=== PATIENT | male | born 1980 | race Caucasian/White ===

== ENCOUNTER 2020-10-19 12:45 | Outpatient (CLI) | payer OTHER, SELFPAY ==
--- NOTE | 2020-10-19 12:59 | MR_ITS ---
WS: [id number] MRI HEAD WITH CONTRAST WITH ATTENTION TO THE INTERNAL AUDITORY CANALS TECHNIQUE: Sagittal T1, T2 axial, T2 axial flair, axial susceptibility weighted imaging, axial diffus ion weighted images, and coronal T2 images were obtained. Pre and post T1 axial and post T1 coronal i mages. ADC and FSPGR images. Post gadolinium images with attention to the internal auditory canals. A xial fiesta imaging. CLINICAL INFORMATION: DIZZINESS AND GIDDINESS COMPARISON: None. FINDINGS: No evidence of restricted diffusion to suggest acute ischemia. Ventricular system and basal cisterns are patent. Normal clay-white differentiation. No suspicious intracranial signal abnormalities. Ericka l posterior fossa. Normal vascular flow voids at the skull base. No extra-axial fluid collections. Pa ranasal sinuses and mastoid air cells are well aerated. No hemosiderin on susceptibly weighted images . Proximal 7th and 8th cranial nerves are normal in appearance. Normal trigeminal nerve root entry zone s. No evidence of enhancing IAC or CP angle mass. Normal optic chiasm and pituitary infundibulum. Nor mal cavernous sinuses and Meckel's cave. Incidental venous angioma in the right frontal lobe. Otherwi se no abnormal intracranial enhancement. Incidental dural venous sinuses. MR/MR iac's wo/w con* [id number] IMPRESSION: 1. No evidence of restricted diffusion to suggest acute ischemia. 2. Proximal 7th and 8th cranial nerves are normal in appearance. No evidence o f enhancing IAC or CP angle mass. 3. No suspicious intracranial signal abnormalities. 4. Paranasal sinuses and mastoid air cells are well aerated. 5. No hemosiderin on the susceptibility weighted images. 6. Incidental benign venous angioma in the right frontal lobe.
== END 2020-10-19 12:46 | disposition home or self-care (01) ==
PROVIDERS: PCP Family Medicine; Visit Provider Otolaryngology
DX: R42 Dizziness and giddiness (principal); Q28.3 Other malformations of cerebral vessels
CPT/HCPCS: 70553; A9579

== ENCOUNTER 2022-04-29 12:48 | Outpatient (CLI) | payer OTHER, SELFPAY ==
--- NOTE | 2022-04-29 13:06 | USCV_ITS ---
Maxx Stanford Age: 42 Gender: M : 1980 Exam Date: 04/29/2022 13:20 Ordering Phys: Lottie Sanders Technologist: FARHAT Exam Location: [facility] Indication: SENSATION OF CHEST PRESSURE, DIZZINESS BP: 122 / 82 HR: 77 Rhythm: Sinus Technical Quality: Adequate MEASUREMENTS (Male / Female) Normal Values 2D ECHO LV Diastolic Diameter PLAX 4.4 cm 4.2 - 5.9 / 3.9 - 5.3 cm LV Systolic Diameter PLAX 2.7 cm IVS Diastolic Thickness 0.9 cm 0.6 - 1.0 / 0.6 - 0.9 cm IVS Systolic Thickness 1.5 cm LVPW Diastolic Thickness 0.9 cm 0.6 - 1.0 / 0.6 - 0.9 cm LVPW Systolic Thickness 1.6 cm LVOT Diameter 2.0 cm LV Ejection Fraction 2D Teich 67.8 % LV Ejection Fraction MOD 2C 60.7 % LV Ejection Fraction 2C AL 62.9 % LA Diameter 2.9 cm LA Width 3.1 cm LA Height 4.9 cm RA Width 3.2 cm RA Height 4.3 cm Aorta at Sinotubular Diameter 2.7 cm IVC Diameter 1.6 cm M-MODE Aortic Annulus Diameter 3.1 cm LA Ao Ratio MM 0.8 MV E Point Septal Separation 0.8 cm DOPPLER AV Peak Velocity 114.0 cm/s LVOT Peak Velocity 88.0 cm/s AV Area Cont Eq vti 2.7 cm squared AV Area Cont Eq pk 2.5 cm squared MV Peak Velocity 71.0 cm/s MV Area PHT 4.0 cm squared Mitral E to A Ratio 1.1 MV E' Velocity 40.5 cm/s Mitral E to MV E' Ratio 7.2 Mitral E to LV E' Lateral Ratio 7.3 Mitral E to LV E' Septal Ratio 7.1 TR Peak Velocity 172.6 cm/s TR Peak Gradient 11.9 mmHg TR Mean Velocity 130.5 cm/s TR Mean Gradient 7.3 mmHg TR Velocity Time Integral 42.4 cm TV Peak E Velocity 63.0 cm/s Right Atrial Pressure 3.0 mmHg Pulmonary Artery Systolic Pressu 14.9 mmHg PV Peak Velocity 109.0 cm/s RV Acceleration Time 0.1 s RV Ejection Time 0.3 s RV AcT/ET 0.4 FINDINGS Left Ventricle Normal left ventricular size and systolic function, EF 61 %. No regional wall motion abnormalities. Right Ventricle The right ventricle is normal in size and function. Right Atrium The right atrium is normal in size. Left Atrium The left atrium is normal in size. Mitral Valve No gross abnormalities noted Aortic Valve No gross abnormalities noted Tricuspid Valve No gross abnormalities noted. Trace tricuspid valve regurgitation. Estimated pulmonary artery peak systolic pressure 15 mmHg Pulmonic Valve No gross abnormalities noted Pericardium Normal pericardium without effusion. Aorta Normal ascending aorta dimension. IVC Normal inferior vena cava. CONCLUSIONS Normal left ventricular size and systolic function, EF 61 %. No regional wall motion abnormalities. Normal cardiac chamber sizes. No gross abnormalities noted. Trace tricuspid valve regurgitation. Estimated pulmonary artery peak systolic pressure 15 mmHg There is no pericardial effusion. There are no intracardiac masses. Dr Joanne Jauregui MD FACC (Electronically Signed) Final Date: 30 April 2022 13:27 S
== END 2022-04-29 12:49 | disposition home or self-care (01) ==
PROVIDERS: PCP Family Medicine; Visit Provider Nurse Practitioner Family
DX: I07.1 Rheumatic tricuspid insufficiency (principal); R07.89 Other chest pain
CPT/HCPCS: 93306